=== PATIENT | male | born 1940 | race Caucasian/White ===

== ENCOUNTER → 2023-10-19 08:10 | Outpatient (REF) | payer MEDICARE, OTHER, SELFPAY ==
--- NOTE | ~2023-10-19 | NM_ITS ---
Exercise Myocardial perfusion study Indication: Chest discomfort to evaluate for myocardial ischemia Technique: The patient was brought in for an exercise perfusion study on 10/19/2023. Patient performed exercise as per Ankur protocol and was injected 30 mCi of sestamibi was given intravenously one target HR was achieved. Images were obtained using the SPECT gamma camera interlaced with the gating device. Images were obtained in supine position. Resting perfusion study was performed on 10/20/2023. Patient was administered 30 mCi of sestamibi intravenously at rest. Images were then obtained in supine position. Images obtained with and without CT attenuation. Total DLP 70 mGy-cm. Images were processed with the software and compared side to side in short axis, horizontal long axis and vertical long axis views. Findings: The stress perfusion study showed non attenuated images show mildly reduced uptake in the inferior wall of the LV myocardium. Remainder of the LV myocardium is normally perfused. Attenuated corrected images show minimal thinning of the apex of the LV myocardium. The gated study shows normal LV systolic function with calculated LVEF of 51%. LV cavity is normal in size. The gated study shows normal systolic wall thickening and contraction of all segments. There is no transient ischemic dilation. Resting study shows no change in perfusion pattern compared to stress perfusion study. Gating at rest reveals normal systolic wall motion with ejection fraction at 57%. The findings are consistent with no reversible defect suggestive of ischemia. Normal myocardial perfusion. NM/NM renu perf SPECT rest & str Impression: 1. Normal myocardial perfusion 2. Gated LVEF is 57% 3. Transient ischemic dilatation not present Stress EKG is negative for ischemia
--- NOTE | 2023-10-19 08:17 | CA_ITS ---
Acquisition Time: 2023-10-19 08:14:31 Total Exercise Time: 00:07:14 Test Indications: CP Medications: SEE H Protocol: BRYAN Max HR: 125 BPM 89% of Pred: 139 BPM Max BP: 160/078 mmHG Max Work Load: 8.9 METS Exercise stress test exercise 7 min 14 sec of Bryan protocol achieving 89% MPHR, without anginal symptoms, with isolated PACs and PVCs, with normotensive response to exercise, without ekg changes. Nuclear images pending. Test reviewed with Dr. Scott. Referred By: Percy Wilson Overread By: Stephanie Stein
== END ==
LOC: HO.CARD 08:10
PROVIDERS: PCP Internal Medicine; Visit Provider Internal Medicine
DX: R07.9 Chest pain, unspecified (principal)
CPT/HCPCS: 78452; 93017; A9500

== ENCOUNTER → 2023-10-19 08:17 | Outpatient (BNV) | payer MEDICARE, OTHER, SELFPAY | PROVIDERS: PCP Internal Medicine; Visit Provider Nurse Practitioner | DX: R07.9 Chest pain, unspecified (principal) | CPT/HCPCS: 78452; 93016; 93018 ==